=== PATIENT | male | born 1980 | race Caucasian/White ===

== ENCOUNTER 2025-03-05 23:25 | Inpatient (IN) | payer BC, SELFPAY ==
[2025-03-05 23:33] VITALS: BP 158/108; PULSE 113; RESP 16; TEMP 37; O2SAT 98; BMI 25.0
--- NOTE | 2025-03-05 23:51 | ECG_ITS ---
[facility] [employer] Test Date: 2025-03-05 Pat Name: Ascencion Win Department: Room: Gender: Male Information Coder: : 1980 Requested By: Demetria Suggs Order Number: [id number] Lopes MD: Jenniffer Guardado M.D. Measurements Intervals [place] Rate: 97 P: 0 AL: 0 QRS: 76 QRSD: 107 T: 36 QT: 341 QTc: 435 Interpretive Statements Sinus rhythm with PACs MODERATE INTRAVENTRICULAR CONDUCTION DELAY [105+ ms QRS DURATION, 80+ ms Q/S IN V1/V2, NO Q AND 60+ ms R IN I/aVL/V5/V6] NONSPECIFIC T-WAVE ABNORMALITY No previous ECG available for comparison Electronically Signed On 03-06-2025 09:00:02 CDT by Jenniffer Guardado M.D. [email or web address]
--- NOTE | 2025-03-05 23:54 | ED.C_ITS ---
HPI - Psych General: Chief Complaint: Psychiatric Symptoms Stated Complaint: low bs/stressed Time Seen by Provider: 03/05/25 23:34 History of Present Illness: Patient is 44-year-old male presents to ED by police department due to psychosis. Patient's called police department due to in manic behavior. Police department placed patient on 96-hour hold. Patient denies any alcohol intake, and participates in Alcoholics Anonymous program, no drug use other than marijuana. Patient is a poor historian, and for what ever reason believes that I am his , or he is in love with me. Related Data Allergies Allergy/AdvReac Type Severity Reaction Status Date / Time cephalexin (From Keflet) Allergy Severe ALGY-Wheezi Verified 03/06/25 01:54 ng Review of Systems General: Reports: 10 or more systems reviewed and unremarkable except in HPI and below Const: Denies: fever(s) or chills Psych: Reports: mood swings, panic attacks, loss of interest and other (unreliable historian) Physical Exam Const: COMMON NORMALS: patient oriented x3 GENERAL APPEARANCE: well kempt HENMT: COMMON NORMALS: normocephalic and atraumatic HEAD & SCALP: normocephalic and atraumatic Neck/C-Spine: COMMON NORMALS: full ROM Chest: COMMONS NORMALS: normal inspection of the chest Resp: COMMON NORMALS: normal respiratory effort and clear to auscultation bilaterally AUSCULTATION: clear to auscultation bilaterally Cardio: COMMON NORMALS: S1 normal heart sound present and S2 normal heart sound present HEART SOUNDS: S1 normal heart sound present and S2 normal heart sound present GI: COMMON NORMALS: Normal to inspection, nondistended, normoactive bowel sounds present and Soft to palpation PALPATION: Yes Soft to palpation : COMMON NORMALS: Yes no CVA tenderness BLADDER/KIDNEY EXAM: Yes no CVA tenderness Back/Pelvis: COMMON NORMALS: no CVA tenderness Extremity: COMMON NORMALS: normal to inspection and full ROM Neuro: COMMON NORMALS: patient oriented x3, CN's II-XII intact bilaterally and moves all extremities Psych: APPEARANCE: Yes well kempt ATTITUDE: Yes bizarre MOOD & AFFECT: Yes elevated mood and Yes euphoric THOUGHT PROCESS: Flight of ideas present, Tangential thought process present and racing thoughts MEMORY/COGNITION: Yes memory grossly impaired INSIGHT: Poor insight present (Psych) and questionable JUDGEMENT: Poor judgement present (Psych) Course Vital Signs: Vital signs: Vital Signs Temperature 98.6 F 03/05/25 23:33 Pulse Rate 113 H 03/05/25 23:33 Respiratory Rate 16 03/05/25 23:33 Blood Pressure 158/108 03/05/25 23:33 Pulse Oximetry 98 03/05/25 23:33 Oxygen Delivery Me thod Room Air 03/05/25 23:33 MDM - Psych Medical Decision Making He is oriented to the hospital, and following the plan, and appears cooperative other than continually wanting to touch me inappropriately. Security came to bedside. Reiterated I had never met this patient before. He does not appear to have capacity at this time. Security notes that patient thought he was his father. Ammonia level added on. Does not appear to be alcohol withdrawal since it has been sometime, witnessed by , that patient has not had alcohol consumption. Will continue to monitor. 96 hour hold by police dept. Nursing now informs me that Police Department did not place on 96-hour hold. Given the update, we will plan on 96-hour hold since patient is not aware, or can make appropriate decisions at this time lacking capacity. On reevaluation, patient notes that he is at [facility] not because he drinks, but because he utilizes marijuana. I am unsure of his story. I did add on ammonia. All of his labs are pending due to lack of staff. Will turn over to Dr. Honeycutt Lab Data Laboratory Results Urine Color Yellow (Yellow) 03/06/25 00:41 Urine Appearance Clear (CLEAR) 03/06/25 00:41 Urine pH 5.5 (5-7) 03/06/25 00:41 Ur Specific [place] 1.027 (1.005-1.030) 03/06/25 00:41 Urine Protein Negative (Negative) 03/06/25 00:41 Urine Glucose (UA) Trace (Normal) H 03/06/25 00:41 Urine Ketones Trace (Negative) 03/06/25 00:41 Urine Blood Negative (Negative) 03/06/25 00:41 Urine Nitrate Negative (Negative) 03/06/25 00:41 Urine Bilirubin Negative (Negative) 03/06/25 00:41 Urine Urobilinogen 1.0 mg/dL (Negative) 03/06/25 00:41 Ur Leukocyte Esterase Negative (Negative) 03/06/25 00:41 Urine RBC 0-2 /hpf (0-2) 03/06/25 00:41 Urine WBC 0-5 /hpf (0-5) 03/06/25 00:41 Ur Squamous Epith Cells 0-5 /hpf (0-5) 03/06/25 00:41 Amorphous Sediment Not Reportable 03/06/25 00:41 Urine Bacteria None seen /hpf (NONE) 03/06/25 00:41 Hyaline Casts 0-4 /lpf H 03/06/25 00:41 No radiology studies performed this visit EKG Data EKG 1: Interpretation: Sinus rhythm with PACs, normal axis, rate of 97, QTc 396 Discharge Plan Discharge Patient Disposition: Admitted As Inpatient Clinical Impression: Psychosis Qualifiers: Psychosis type: delusional disorder Qualified Code(s): F22 - Delusional disorders Condition: Stable Discharge Diet: Usual diet Coding Level of Care Code ED Supervisor Inventory Merchandising for Hase[employer] Petty
[2025-03-06] MEDS: OLANZapine 5 mg ODT PO (01:06)
[2025-03-06 01:07] LABS: Bilirubin Urine Negative (Negative); Blood Urine Negative (Negative); Glucose Urine UA Trace (Normal); Ketones Urine Trace (Negative); Leukocyte Esterase Urine Negative (Negative); Nitrate Urine Negative (Negative); Protein Urine Negative (Negative); Specific Gravity, Urine 1.027 (1.005-1.030); Urine Appearance Clear (CLEAR); Urine Color Yellow (Yellow); pH Urine 5.5 (5-7)
[2025-03-06 01:12] LABS: Add Urine Microscopic? YES; Bacteria Urine None Seen /hpf; Hyaline Casts Urine 0-4 /lpf; RBC Urine 0-2 /hpf (0-2); Squamous Epithelial Cell Urine 0-5 /hpf (0-5); WBC Urine 0-5 /hpf (0-5)
--- NOTE | 2025-03-06 02:07 | PC.NURSE ---
96 Hour Involuntary Hold Patient Rights have been reviewed with the patient and a copy of the same has been given to him. Security Officers Balwinder and Key were present at bedside at the time of presentation of Rights.
[2025-03-06 02:43] LABS: Basophils # 0.1 10^3/uL (0.0-0.1); Basophils % 0.8 %; Eosinophils # 0.1 10^3/uL (0.0-0.8); Eosinophils % 1.2 %; Hematocrit 43.2 % (37-53); Lymphocytes % 19.7 %; Mean Corpuscular HGB Conc 33.3 g/dL (30-55); Mean Corpuscular Hemoglobin 32.3 pg (27-33); Mean Corpuscular Volume 96.9 fl (82-101); Mean Platelet Volume 10.1 fL (7.4-10.4); Monocytes # 0.6 10^3/uL (0.2-0.9); Monocytes % 5.5 %; Neutrophils # 7.21 10^3/uL (1.8-7.7); Neutrophils % 72.5 %; Nucleated Red Blood Cells % 0 %; Platelet Count 183 10^3/cmm (157-399); Red Blood Count 4.46 10^6/uL (3.85-5.65); Red Cell Distribution Width 12.6 % (12.1-15.1); White Blood Count 9.95 10^3/uL (3.29-11.43)
[2025-03-06 03:02] LABS: Ammonia 25 umol/L (16-60)
[2025-03-06 03:11] LABS: Alanine Aminotransferase 17 U/L (0-41); Albumin Level 4.2 g/dL (3.5-5.2); Alkaline Phosphatase 76 U/L (40-130); Aspartate Amino Transferase 23 U/L (0-40); Blood Urea Nitrogen 15 mg/dL (6-20); Calcium 9.8 mg/dL (8.5-10.5); Carbon Dioxide 25 mmol/L (22-29); Chloride 104 mmol/L (98-107); Creatinine Clr Calc Pharmacy 134.9344; Glomerular Filtration Rate 105.5 mL/min (90-130); Glucose 178 mg/dL (65-115); Osmolality Calculated 293 mOsm/kg (285-295); Sodium 139 mmol/L (136-145); Thyroid Stimulating Hormone 2.34 uIU/mL (0.27-4.20); Total Bilirubin 0.2 mg/dL (0.15-1.2); Total Protein 7.2 g/dL (6.6-8.7)
[2025-03-06 03:15] LABS: Acetaminophen < 5.0 ug/mL (10-30); Alcohol Level < 10 mg/dL (0-10); Salicylate < 0.3 mg/dL (3-10)
[2025-03-06 04:42] VITALS: BP 147/96; BP 158/76; PULSE 69; PULSE 88; RESP 16; RESP 17; TEMP 36.4; O2SAT 100; O2SAT 98
[2025-03-06 06:00] VITALS: BP 147/96; PULSE 69; RESP 17; TEMP 36.4; O2SAT 100
[2025-03-06 07:20] LABS: Amphetamines Screen Urine Negative (Negative); Barbiturates Screen Urine Negative (Negative); Benzodiazepines Screen Urine Negative (Negative); Cocaine Screen Urine Negative (Negative); Opiate Screen Urine Negative (Negative); PCP Screen Urine Negative (Negative); THC Screen Urine Positive (Negative)
--- NOTE | 2025-03-06 13:20 | PC.NURSE ---
Patient at window states that this is just a game. Patient said that he needs access to the meeting. This nurse informed patient that the meeting has already passed, that the meeting is between the doctor, case workers and the charge nurse. Patient said, that's great, sounds unreasonable. Patient stomping his foot by the glass. Patient agitated, says I don't want to be that brandt. This nurse offered medication for agitation, patient said NO I don't need anything, I am fine, I get to choose!
[2025-03-06 14:00] VITALS: BP 139/91; RESP 18; TEMP 36.9; O2SAT 97
--- NOTE | 2025-03-06 14:26 | W.PM.NPUH&PS ---
Providers/Chief Complaint Admitting Physician: Benjamín Mello MD Chief Complaint: low bs/stressed HPI NPU History of Present Illness Ascencion Win is a 44 year old male who presented to the emergency department with the following report: Chief Complaint: Psychiatric Symptoms Stated Complaint: low bs/stressed Time Seen by Provider: 03/05/25 23:34 History of Present Illness: Patient is 44-year-old male presents to ED by police department due to psychosis. Patient's called police department due to in manic behavior. Police department placed patient on 96-hour hold. Patient denies any alcohol intake, and participates in Alcoholics Anonymous program, no drug use other than marijuana. Patient is a poor historian, and for what ever reason believes that I am his , or he is in love with me. He is unknown to [facility] psychiatry through inpatient or outpatient services. He was admitted to the neuropsychiatric unit for definitive treatment of those issues. He presented today reporting: Chief complaint Struggling with addiction and experiencing symptoms of valeria. History of the present complaint The patient reports experiencing frustration and a paradoxical position regarding his addiction. He acknowledges his identity as an addict and expresses a desire to be clean, stating that he does not want to be an addict anymore. He emphasizes the importance of the program he is participating in, which he believes is essential for his recovery. Despite his frustration, he is committed to attending the program regularly, as he feels it is beneficial for him. The patient describes his addiction as a significant part of his life, mentioning that he has struggled with it for a long time. He identifies as a pothead, with marijuana being his drug of choice. He has experienced legal issues related to his addiction, including a DUI and distribution charges. He has been to custodial multiple times, with the longest duration being 198 days. He has attended an AA program once but has not participated in inpatient rehab or other structured programs. The patient expresses feelings of failure and exhaustion, particularly in relation to his family. He mentions his children and the difficulty he faces in being away from them, indicating that this is the first time he has been from them. He feels that his children might be happier without him, which adds to his sense of failure. He has lost a significant amount of weight, approximately 65 pounds, which he attributes to his efforts to improve himself for his children. The patient discusses his daughter, who he believes is demonstrating autistic features. He feels a sense of responsibility for her condition, although he acknowledges that he must accept it as it is. He expresses a desire to be a better person and to do everything for his child, but he feels that his addiction has hindered his ability to do so. The patient has a history of broken bones from childhood and mentions an allergy to Keflex. He has not experienced valeria before and is unfamiliar with the symptoms, although he acknowledges that he is currently experiencing them. He has not taken medication for his condition previously and is hesitant about doing so, preferring to leave decisions to a higher power or a doctor. He has been twice and has six biological children from these relationships. He identifies as a heterosexual and has a Anglican belief system. 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 He currently lives in a home with his and two children, aged three and six, and they have a dog. Mental health history Struggled with addiction for much of life, primarily with cannabis. Attended one Alcoholics Anonymous program. Has never been in inpatient rehab. Experienced legal issues related to drug use, including DUI and distribution charges. Has never been in a psychiatric hospital before. Reports current symptoms consistent with valeria, but has never experienced valeria before. Expresses desire to be clean and frustration with addiction. Social history heterosexual male with six biological children from two marriages. Currently living with and two children, ages three and six, in a home they own. Has a dog. Ran own [employer] business for about 10 years. No service. Identifies as Anglican. Reports addiction issues, primarily with cannabis, and has a history of legal issues including DUI and drug-related charges. Has been to custodial approximately 10 times. No inpatient rehab experience, but has attended AA meetings. Allergic to Keflex. No current medication use. Meds NPU Home Medications ?Medication ?Instructions ?Recorded ?Confirmed ?Last Taken ?Type No Known Home Medications 03/06/25 03/06/25 Unknown History Allergies Allergy/AdvReac Type Severity Reaction Status Date / Time cephalexin (From Keflet) Allergy Severe ALGY-Wheezi Verified 03/06/25 01:54 ng Mental Status Exam MSE Comments: This is a well-nourished well-developed white male in hospital scrubs with limited grooming but intense eye contact. No abnormal movements except for psychomotor agitation. Somewhat cooperative with exam and moderate distress. Speech was increased rate and volume. Mood described as fine affect irritable. Thought process linear. Thought content: Patient denied suicidal or homicidal ideation, there were no delusions reported but clear paranoia and persecutory delusions noted, he denied any auditory or visual hallucinations but did believe he had special abilities of sort. Attention and concentration were limited and memory appeared somewhat unreliable but no more formally tested. He is alert and oriented to person and place. Insight, judgment and impulse control are all impaired. Vitals/I&O/Wt Last Vital Signs Temp 97.6 F 03/06/25 06:00 Pulse 69 03/06/25 06:00 Resp 17 03/06/25 06:00 BP 147/96 03/06/25 06:00 Pulse Ox 100 03/06/25 06:00 O2 Del Method Room Air 03/06/25 06:00 Weight last 48 hrs Weight 83.915 kg Data NPU 03/06/25 02:32 03/06/25 02:32 A&P Assessment and plan (1) Psychosis: (2) Cannabis use disorder in remission: Plan This is a 44-year-old white male with a significant history of addiction issues and psychiatric morbidity but absent clarity as to how significant his mental health issues have been. He presented to the hospital under the influence and appearing quite manic but he endorses although he is manic that this was the first time that he has experienced valeria. But he knew that it was in fact valeria which raises the question of whether or not this is the first time. UDS only positive for marijuana. 1. Encourage initiation of antipsychotic. We discussed restarting Invega. 2. Continue every 15 minute checks for safety. 3. Encourage individual, group and milieu therapy. 4. Encouraged sober living treatments after discharge at the highest level of care to which he is willing to commit. 5. Get collateral information. 6. Evaluate against the backdrop of a 96-hour hold. PDMP PDMP Reviewed: Not Reviewed Involuntary Hold Information Hold Status: Legal Status: 96 Hour Hold Date/Time Hold Expires: 03/12/25@0138 Attestations NPU Medical Necessity Statement*: Inpatient hospitalization is medically necessary and the clinically appropriate intervention at this time. We will monitor medications and make changes and adjustments as indicated. He will be in the hospital for over 2 midnights. Likely length of stay 7-10 days. Coding Level of Care Code Acute Code for [facility] Fwd Diagnoses Psychosis F22 Psychosis type: delusional disorder Cannabis use disorder in remission F12.91
[2025-03-06] MEDS: paliperidone ER 3 mg Tablet PO (20:04)
[2025-03-06] MEDS: hyDROXYzine 25 mg Capsule 50 MG PO (20:04)
[2025-03-06] MEDS: trazodone 50 mg Tablet PO (20:05)
[2025-03-06] MEDS: nicotine 4 mg lozenge MUCOUS MEM (21:00)
[2025-03-06 21:53] VITALS: BP 135/89; PULSE 76; RESP 18; TEMP 36.9; O2SAT 98
--- NOTE | 2025-03-07 00:10 | PC.NURSE ---
Pt. up at nurses station wanting to leave, asking to call his to come and pick him up. Signee let pt. know he would not be DC tonight. Pt. then wanted to go into the courtyard to smoke a cigarette. Signee let pt. know this was a non smoking facility. Pt. said so what your telling me is for the next 10 hrs or so i have no control over my life. Pt. stated he gets it, he has mental clarity, and that he can now finish the finial steps. Pt. irritated, not making a lot of since in what he was saying, but signee believes pt. was being sarcastic with remarks.
--- NOTE | 2025-03-07 00:19 | PC.NURSE ---
Pt. came up to nurses station and said he I understand, I get it. Your my mom and I love you. Signee informed pt. signee was not his mom, then pt. said no your my sister . Pt. asked for a razor to shave not making any since about it being something symbolic. Again asking for a cigarette. Pt. walked back to his room not making any since with what he was saying. Pt. did blow signee a kiss.
--- NOTE | 2025-03-07 01:18 | PC.NURSE ---
Pt. came up to the nurses station thanking signee repeatedly saying he gets it, clarity. He read the first 3 chapters of the bible. He bowed to signee and said thank you for making me see, and said he had given his testimony to someone else and was there anything else he needed to do before morning.
--- NOTE | 2025-03-07 02:01 | PC.NURSE ---
Pt. came out of his room and started rolling all the way down the kim from the dayroom then back again. While rolling down the kim pt. was talking to God saying he has saw the error of his ways and he was doing this to humiliate himself. Another male pt. was in the dayroom and had conflict with pt. earlier in the day. The other male pt. laid a blanket down in the doorway to the dayroom and when pt. rolled back into the dayroom pt. graveled at other male pt.'s feet. Pt. kissed the floor and said a prayer. Security came down and walked with pt. back to pt.'s room. Pt. bowed to security.
[2025-03-07 06:00] VITALS: BP 157/88; PULSE 110; RESP 18; O2SAT 98
[2025-03-07] MEDS: paliperidone ER 3 mg Tablet PO (08:39)
[2025-03-07] MEDS: LORazepam 2 mg Tablet PO (08:39)
--- NOTE | 2025-03-07 08:46 | PC.NURSE ---
patient frequently at window, trying to hear what staff are taking about. Patient said that he needs to talk to the doctor because he has shit and pissed himself today. Patient is having bizarre behavior, frequently bowing to staff. Patient is making fellow patients feel uncomfortable. This nurse talked with Dr. Mello about patient behavior. Dr. Mello told this nurse to administer 2mg ativan PO to patient. Patient took ativan and invega this morning. When this nurse asked patient his name and , patient refused to give an answer, saying it doesn't matter. Patient did agree that his is named Yakelin. When this nurse handed patient the medicine cup containing the medication, patient appeared suddenly agitated. He purses his lips and pounded his fist on the ledge a couple of times while breathing heavily.
--- NOTE | 2025-03-07 10:17 | PC.NURSE ---
EVS reported that a patient had a bm in the shower. This patient had just went to the bathroom prior to this. Patient has had one incontinent episode this morning. He requires frequent redirection by staff.
[2025-03-07 14:00] VITALS: BP 150/89; PULSE 154; RESP 18; O2SAT 97
[2025-03-07] MEDS: nicotine 4 mg lozenge MUCOUS MEM (20:11)
[2025-03-07] MEDS: trazodone 50 mg Tablet PO (20:56)
[2025-03-07] MEDS: hyDROXYzine 25 mg Capsule 50 MG PO (20:56)
[2025-03-07 21:18] VITALS: BP 141/96; PULSE 95; RESP 17; TEMP 36.4; O2SAT 99; BMI 24.3
--- NOTE | 2025-03-07 22:01 | W.PM.NPUPNS ---
Subjective NPU Subjective: Patient presented today continuing in the same vein of paranoia, persecutory and grandiose delusions per staff reports and direct observation. We continue to encourage him to take the Invega and that would be his fastest means to discharge with the demonstration of improvement. He denied any side effects to the medication. Mental Status Exam MSE Comments: This is a well-nourished well-developed white male in hospital scrubs with limited grooming but intense eye contact. No abnormal movements except for psychomotor agitation. Somewhat cooperative with exam and moderate distress. Speech was increased rate and volume. Mood described as fine affect irritable. Thought process linear. Thought content: Patient denied suicidal or homicidal ideation, there were no delusions reported but clear paranoia and persecutory delusions noted, he denied any auditory or visual hallucinations but did believe he had special abilities of sort. Attention and concentration were limited and memory appeared somewhat unreliable but no more formally tested. He is alert and oriented to person and place. Insight, judgment and impulse control are all impaired. Vitals/I&O/Wt Last Vital Signs Temp 97.5 F L 03/07/25 21:18 Pulse 95 03/07/25 21:18 Resp 17 03/07/25 21:18 BP 141/96 03/07/25 21:18 Pulse Ox 99 03/07/25 21:18 O2 Del Method Room Air 03/07/25 21:18 Weight last 48 hrs Weight 81.363 kg Weight 83.915 kg Data NPU 03/06/25 02:32 03/06/25 02:32 A&P Assessment and plan (1) Psychosis: (2) Cannabis use disorder in remission: Plan This is a 44-year-old white male with a significant history of addiction issues and psychiatric morbidity but absent clarity as to how significant his mental health issues have been. He presented to the hospital under the influence and appearing quite manic but he endorses although he is manic that this was the first time that he has experienced valeria. But he knew that it was in fact valeria which raises the question of whether or not this is the first time. UDS only positive for marijuana. 1. Started Invega 3 mg p.o. daily we will increase to 6 mg tomorrow. 2. Continue every 15 minute checks for safety. 3. Encourage individual, group and milieu therapy. 4. Encouraged sober living treatments after discharge at the highest level of care to which he is willing to commit. 5. Get collateral information. 6. Evaluate against the backdrop of a 96-hour hold. PDMP PDMP Reviewed: Not Reviewed Involuntary Hold Information Hold Status: Legal Status: 96 Hour Hold Date/Time Hold Expires: 03/12/25@0138 Attestations NPU Medical Necessity Statement*: Inpatient hospitalization is medically necessary and the clinically appropriate intervention at this time. We will monitor medications and make changes and adjustments as indicated. Likely length of stay 7-10 days. Coding Level of Care Code Acute Code for [facility] Fwd Diagnoses Psychosis F22 Psychosis type: delusional disorder Cannabis use disorder in remission F12.91
--- NOTE | 2025-03-07 23:52 | PC.NURSE ---
Pt. came up to nurses station not making any since. Pt. did say he could not figure out why all the staff had brand new tattoos, and that was one reason he knew this was not real.
[2025-03-08] MEDS: haloperidol inj 5 mg/mL INJ 1 mL IM (04:12)
[2025-03-08] MEDS: diphenhydrAMINE 50 mg/mL SDV 1mL IM (04:12)
[2025-03-08] MEDS: LORazepam 2 mg/mL INJ 1 mL IM (04:12)
--- NOTE | 2025-03-08 04:13 | PC.NURSE ---
Signee heard yelling from the dayroom. Went to the dayroom and pt. in room 155-1 was yelling d/t pt. in 170 had asked for a milk from him. Pt. in room 155 said no you need to get your own milk, but pt. in room 170 said no I want your milk and went to grab it. Pt. from room 155 said Your sanchez i didn't knock the hell out of him . Signee redirected pt. out of the dayroom, pt. was not violent, but was being difficult and not following directions when asked to get away from pt. in room 150. Finally staff got pt. to his room, but pt. did not want to stay in his room wanted to go back into the dayroom. Signee pulled a zyprexa from [employer], but pt. refused to take it. Security was called to come down d/t pt. being difficult and not following directions. Signee then pulled B-52 from [employer], pt. did not want the injections, he wanted to take part in a meeting. Signee let pt. know this was the meeting and pt. decided then to sit down and let this nurse and another nurse give him the injections. Security was present in the room when injections was given as was house builder.
--- NOTE | 2025-03-08 04:47 | PC.NURSE ---
zyprexa was wasted with this signee and Leann Kaba LPN
--- NOTE | 2025-03-08 06:32 | PC.NURSE ---
vs not completed per charge nurse resp 16
[2025-03-08] MEDS: paliperidone ER 3 mg Tablet PO ×2 (08:20→08:42)
[2025-03-08] MEDS: nicotine 4 mg lozenge MUCOUS MEM (08:20)
--- NOTE | 2025-03-08 08:26 | W.PM.NPUPNS ---
Subjective NPU Subjective: Patient presented today reporting that things were going better. She continued however to be quite manic and have some weird thoughts about the program that he is in here at the hospital. He talks about being able to go home and sort things out and coming back. We discussed that when people present in psychosis that we like to treat them until they are at a place that is safe and they are thinking clearly. We discussed wanting to speak with his significant other to get a sense of how she thinks he is doing compared to baseline. He denied any side effects to the medication. Mental Status Exam MSE Comments: This is a well-nourished well-developed white male in hospital scrubs with limited grooming but intense eye contact. No abnormal movements except for psychomotor agitation. Somewhat cooperative with exam and moderate distress. Speech was increased rate and volume. Mood described as fine affect irritable. Thought process linear. Thought content: Patient denied suicidal or homicidal ideation, there were no delusions reported but clear paranoia and persecutory delusions noted, he denied any auditory or visual hallucinations but did believe he had special abilities of sort. Attention and concentration were limited and memory appeared somewhat unreliable but no more formally tested. He is alert and oriented to person and place. Insight, judgment and impulse control are all impaired. Vitals/I&O/Wt Last Vital Signs Temp 97.5 F L 03/07/25 21:18 Pulse 95 03/07/25 21:18 Resp 17 03/07/25 21:18 BP 141/96 03/07/25 21:18 Pulse Ox 99 03/07/25 21:18 O2 Del Method Room Air 03/07/25 21:18 Weight last 48 hrs Weight 81.363 kg Data NPU 03/06/25 02:32 03/06/25 02:32 A&P Assessment and plan (1) Psychosis: (2) Cannabis use disorder in remission: Plan This is a 44-year-old white male with a significant history of addiction issues and psychiatric morbidity but absent clarity as to how significant his mental health issues have been. He presented to the hospital under the influence and appearing quite manic but he endorses although he is manic that this was the first time that he has experienced valeria. But he knew that it was in fact valeria which raises the question of whether or not this is the first time. UDS only positive for marijuana. 1. Started Invega 3 mg p.o. daily we will increase to 6 mg tomorrow. 2. Continue every 15 minute checks for safety. 3. Encourage individual, group and milieu therapy. 4. Encouraged sober living treatments after discharge at the highest level of care to which he is willing to commit. 5. Get collateral information. 6. Evaluate against the backdrop of a 96-hour hold. PDMP PDMP Reviewed: Not Reviewed Involuntary Hold Information Hold Status: Legal Status: 96 Hour Hold Date/Time Hold Expires: 03/12/25@0138 Attestations NPU Medical Necessity Statement*: Inpatient hospitalization is medically necessary and the clinically appropriate intervention at this time. We will monitor medications and make changes and adjustments as indicated. Likely length of stay 4 to 6 days. Coding Level of Care Code Acute Code for g Fwd Diagnoses Psychosis F22 Psychosis type: delusional disorder Cannabis use disorder in remission F12.91
[2025-03-08 09:28] VITALS: BP 124/79; PULSE 89; RESP 17; TEMP 37; O2SAT 98
[2025-03-08 14:00] VITALS: BP 134/83; PULSE 90; RESP 17; O2SAT 98
[2025-03-08] MEDS: hyDROXYzine 25 mg Capsule 50 MG PO (20:15)
[2025-03-08] MEDS: haloperidol 5 mg Tablet PO (20:15)
[2025-03-08] MEDS: trazodone 50 mg Tablet PO (20:15)
[2025-03-08 20:39] VITALS: BP 138/101; PULSE 101; RESP 18; TEMP 36.3; O2SAT 100
[2025-03-09 06:00] VITALS: BP 124/79; PULSE 108; RESP 18; TEMP 36.7; O2SAT 97
[2025-03-09] MEDS: paliperidone ER 6 mg Tablet PO (08:39)
--- NOTE | 2025-03-09 09:21 | PC.NURSE ---
Pt states that he slept good last night. 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 He rates his anxiety a 2/10 and states that is related to just wanting to leave. He rates his depression a 0/10. He denies any hallucinations. He denies SI/HI. No pain is reported. He states that his plan at d/c is to leave with his In laws, , and kids and they are going to be moving back to [place]. He states that they have a better support system up there and they think that will be best for them.
--- NOTE | 2025-03-09 12:37 | PC.NURSE ---
Spoke with Yakelin Audelia, pt . She states that pt has no hx of any type of behavior like this. She states that he was on probation from [id number] and had to do AA during that time for 4 years. She states that they had times that they thought maybe he was bipolar because he would have episodes of highs and lows She states that he also hyperfixates on a topic and will spend a lot of time on it. She states this is a lot like their daughter does and she is autistic. She is not remembering anything that has changed recently, but she states that hind sight this started roughly a week ago.
[2025-03-09 14:00] VITALS: BP 139/89; PULSE 105; RESP 17; O2SAT 98
--- NOTE | 2025-03-09 18:05 | P.NPUPN_ITS ---
Subjective NPU 2 Subjective: Patient presented today reporting that things are going much better. He reports that the experiences that he was having before have diminished or gone away. We discussed that as much that he feels he just got better that the combination of the treatment milieu, him taking the antipsychotic, and him abstaining from any drug use in the past few days all have come together to produce his improvement. He was really hoping to be discharged as soon as possible and denied any side effects to the medication. Mental Status Exam 2 MSE Comments: This is a well-nourished well-developed white male in hospital scrubs with limited grooming but intense eye contact. No abnormal movements except for psychomotor agitation. Somewhat cooperative with exam and mild to moderate distress. Speech was more normal rate and volume. Mood described as much better, affect less irritable. Thought process linear. Thought content: Patient denied suicidal or homicidal ideation, there were no delusions reported and clear decrease in paranoia and persecutory delusions noted, he denied any auditory or visual hallucinations. Attention and concentration were limited and memory appeared somewhat unreliable but no more formally tested. He is alert and oriented to person and place. Insight, judgment and impulse control are all impaired. Vitals/I&O/Wt Last Vital Signs Temp 98.1 F 03/09/25 06:00 Pulse 110 H 03/09/25 20:12 Resp 18 03/09/25 20:12 BP 120/85 03/09/25 20:12 Pulse Ox 97 03/09/25 20:12 O2 Del Method Room Air 03/09/25 20:12 Data NPU 03/06/25 02:32 03/06/25 02:32 A&P Assessment and plan (1) Psychosis: (2) Cannabis use disorder in remission: Plan This is a 44-year-old white male with a significant history of addiction issues and psychiatric morbidity but absent clarity as to how significant his mental health issues have been. He presented to the hospital under the influence and appearing quite manic but he endorses although he is manic that this was the first time that he has experienced valeria. But he knew that it was in fact valeria which raises the question of whether or not this is the first time. UDS only positive for marijuana. 1. Started Invega 3 mg p.o. daily we will increase to 6 mg tomorrow. 2. Continue every 15 minute checks for safety. 3. Encourage individual, group and milieu therapy. 4. Encouraged sober living treatments after discharge at the highest level of care to which he is willing to commit. 5. Get collateral information. 6. Evaluate against the backdrop of a 96-hour hold. PDMP PDMP Reviewed: Not Reviewed Involuntary Hold Information 2 Hold Status: Legal Status: 96 Hour Hold Date/Time Hold Expires: @0138 Attestations NPU 2 Medical Necessity Statement*: Inpatient hospitalization is medically necessary and the clinically appropriate intervention at this time. We will monitor medications and make changes and adjustments as indicated. Likely length of stay 1-3 days. Coding Level of Care Code Acute Code for [facility] Fwd Diagnoses Psychosis F22 Psychosis type: delusional disorder Cannabis use disorder in remission F12.91
[2025-03-09 20:12] VITALS: BP 120/85; PULSE 110; RESP 18; O2SAT 97
[2025-03-10 06:00] VITALS: BP 134/77; PULSE 84; RESP 18; TEMP 36.2; O2SAT 100
[2025-03-10] MEDS: paliperidone ER 6 mg Tablet PO (08:36)
--- NOTE | 2025-03-10 13:06 | PC.NURSE ---
Patient assessment complete at 0810. Patient continues to be intrusive at times with staff. He is directable. He denies SI/HI/AVH. He denies intrusive thoughts. He states that I need to prove to my that I love her and I'm going to change. I'm an addict and don't pay attention to my children. I've gave them diseases and let yards go. I paid more attention to the chickens. Discharge plans discussed. Patient plans to talk with counselor after discharge to show I'm not an addict. His plan is to move to [place]. Discussed with interdisciplinary staff and physician at care rounds.
[2025-03-10 14:00] VITALS: BP 141/91; PULSE 121; RESP 17; O2SAT 99
--- NOTE | 2025-03-10 17:50 | P.NPUPN_ITS ---
Subjective NPU 2 Subjective: Patient presented today reporting that he is doing okay. He reports appreciating the efforts of this treatment team and a willingness to stay until we think things are well. We discussed the fact that we had concerns about him leaving his kids unattended secondary to his manic state and that we are looking at making sure child protective services do not feel there are any additional needs. He suggested that his in-laws have come up to assist for this very reason and that he will not be in primary caregiver mode until things are much better. He denied any side effects of medication. Mental Status Exam 2 MSE Comments: This is a well-nourished well-developed white male in hospital scrubs with limited grooming but intense eye contact. No abnormal movements except for psychomotor agitation. Somewhat cooperative with exam and mild to moderate distress. Speech was more normal rate and volume. Mood described as much better, affect less irritable. Thought process linear. Thought content: Patient denied suicidal or homicidal ideation, there were no delusions reported and clear decrease in paranoia and persecutory delusions noted, he denied any auditory or visual hallucinations. Attention and concentration were limited and memory appeared somewhat unreliable but no more formally tested. He is alert and oriented to person and place. Insight, judgment and impulse control are all impaired. Vitals/I&O/Wt Last Vital Signs Temp 98.0 F 03/10/25 22:00 Pulse 118 H 03/10/25 22:00 Resp 20 H 03/10/25 22:00 BP 126/89 03/10/25 22:00 Pulse Ox 99 03/10/25 22:00 O2 Del Method Room Air 03/10/25 06:00 Data NPU 03/06/25 02:32 03/06/25 02:32 A&P Assessment and plan (1) Psychosis: (2) Cannabis use disorder in remission: Plan This is a 44-year-old white male with a significant history of addiction issues and psychiatric morbidity but absent clarity as to how significant his mental health issues have been. He presented to the hospital under the influence and appearing quite manic but he endorses although he is manic that this was the first time that he has experienced valeria. But he knew that it was in fact valeria which raises the question of whether or not this is the first time. UDS only positive for marijuana. 1. Started Invega 3 mg p.o. daily then increased to 6 mg. 2. Continue every 15 minute checks for safety. 3. Encourage individual, group and milieu therapy. 4. Encouraged sober living treatments after discharge at the highest level of care to which he is willing to commit. 5. Get collateral information. Is led to some understanding of him possibly putting his children at risk and need for child line. 6. Evaluate against the backdrop of a 96-hour hold. PDMP PDMP Reviewed: Not Reviewed Involuntary Hold Information 2 Hold Status: Legal Status: 96 Hour Hold Date/Time Hold Expires: @0138 Attestations NPU 2 Medical Necessity Statement*: Inpatient hospitalization is medically necessary and the clinically appropriate intervention at this time. We will monitor medications and make changes and adjustments as indicated. Likely length of stay 1-3 days. Coding Level of Care Code Acute Code for [facility] Fwd Diagnoses Psychosis F22 Psychosis type: delusional disorder Cannabis use disorder in remission F12.91
[2025-03-10 22:00] VITALS: BP 126/89; PULSE 118; RESP 20; TEMP 36.7; O2SAT 99
[2025-03-11 06:00] VITALS: BP 130/82; PULSE 80; RESP 18; TEMP 36.5; O2SAT 99
[2025-03-11] MEDS: paliperidone ER 6 mg Tablet PO (09:13)
[2025-03-11 14:00] VITALS: BP 137/82; PULSE 86; RESP 17; O2SAT 99
--- NOTE | 2025-03-11 18:16 | P.NPUPN_ITS ---
Subjective NPU 2 Subjective: Patient presented today reporting that he is doing okay. He continued to identify that his need to be well was paramount. He continued to identify that his family needs him to make sure that he is on his medication. We discussed the risks, benefits and alternatives of initiating Invega Sustenna instead of him taking the pill and having to make that decision to be adherent each day and he understood and agreed to proceed as is documented in this note. He denied any side effects of the medication. Mental Status Exam 2 MSE Comments: This is a well-nourished well-developed white male in hospital scrubs with limited grooming but intense eye contact. No abnormal movements except for mild psychomotor retardation. Somewhat cooperative with exam in no acute distress. Speech was more normal rate and volume. Mood described as much better, affect more calm. Thought process linear. Thought content: Patient denied suicidal or homicidal ideation, there were no delusions reported and significant decrease in paranoia and persecutory delusions with no delusion out of the really noted, he denied any auditory or visual hallucinations. Attention and concentration were intact and memory appeared more reliable but no more formally tested. He is alert and oriented x 3. Insight, judgment and impulse control are all improving. Vitals/I&O/Wt Last Vital Signs Temp 97.6 F 03/11/25 21:07 Pulse 100 03/11/25 21:07 Resp 19 H 03/11/25 21:07 BP 138/86 03/11/25 21:07 Pulse Ox 99 03/11/25 21:07 O2 Del Method Room Air 03/11/25 21:07 Data NPU 03/06/25 02:32 03/06/25 02:32 A&P Assessment and plan (1) Psychosis: (2) Cannabis use disorder in remission: Plan This is a 44-year-old white male with a significant history of addiction issues and psychiatric morbidity but absent clarity as to how significant his mental health issues have been. He presented to the hospital under the influence and appearing quite manic but he endorses although he is manic that this was the first time that he has experienced valeria. But he knew that it was in fact valeria which raises the question of whether or not this is the first time. UDS only positive for marijuana. 1. Started Invega 3 mg p.o. daily then increased to 6 mg. Initiate Invega 234 mg IM to deltoid for loading dose. Second loading dose in 4 to 7 days. Depending on situation could consider discharge prior with continued improvement. 2. Continue every 15 minute checks for safety. 3. Encourage individual, group and milieu therapy. 4. Encouraged sober living treatments after discharge at the highest level of care to which he is willing to commit. 5. Get collateral information. Review of situation with is led to decision a child line is unnecessary and in-laws are in town and he will not be in a primary care role until it is determined that he is well again. 6. Evaluate against the backdrop of a 96-hour hold. PDMP PDMP Reviewed: Not Reviewed Involuntary Hold Information 2 Hold Status: Legal Status: 96 Hour Hold Date/Time Hold Expires: @0138 Attestations NPU 2 Medical Necessity Statement*: Inpatient hospitalization is medically necessary and the clinically appropriate intervention at this time. We will monitor medications and make changes and adjustments as indicated. Likely length of stay 1-3 days. Coding Level of Care Code Acute Code for [facility] Fwd Diagnoses Psychosis F22 Psychosis type: delusional disorder Cannabis use disorder in remission F12.91
[2025-03-11] MEDS: nicotine 4 mg lozenge MUCOUS MEM (19:13)
[2025-03-11 21:07] VITALS: BP 138/86; PULSE 100; RESP 19; TEMP 36.4; O2SAT 99
[2025-03-12 06:00] VITALS: BP 131/88; PULSE 108; RESP 18; TEMP 36.4; O2SAT 100
[2025-03-12] MEDS: paliperidone ER 6 mg Tablet PO (07:36)
[2025-03-12] MEDS: hyDROXYzine 25 mg Capsule 50 MG PO (07:36)
[2025-03-12] MEDS: paliperidone palmitate 234 mg Syringe IM (07:41)
[2025-03-12] MEDS: nicotine 4 mg lozenge MUCOUS MEM ×2 (08:31→12:24)
--- NOTE | 2025-03-12 14:11 | W.PM.NPUDCS ---
Diagnoses at Discharge Discharge Diagnosis (1) Psychosis: Status: Acute Qualifiers: Psychosis type: delusional disorder Qualified Code(s): F22 - Delusional disorders (2) Cannabis use disorder in remission: Status: Acute Reason for Visit Reason for Visit: low bs/stressed Involuntary Hold Information Hold Status: Legal Status: 96 Hour Hold Date/Time Hold Expires: 03/12/25@0138 Discharge Data Studies Completed and Pending: Laboratory Results WBC 9.95 10^3/uL (3.2 9-11.43) 03/06/25 02:32 RBC 4.46 10^6/uL (3.8 5-5.65) 03/06/25 02:32 Hgb 14.40 g/dL (11.27 -16.99) 03/06/25 02:32 Hct 43.2 % (37-53) 03/06/25 02:32 MCV 96.9 fl (82-101) 03/06/25 02:32 MCH 32.3 pg (27-33) 03/06/25 02:32 MCHC 33.3 g/dL (30-55) 03/06/25 02:32 RDW 12.6 % (12.1-15.1 ) 03/06/25 02:32 Plt Count 183 10^3/cmm (157 -399) 03/06/25 02:32 MPV 10.1 fL (7.4-10.4 ) 03/06/25 02:32 Neut % (Auto) 72.5 % 03/06/25 02:32 Lymph % (Auto) 19.7 % 03/06/25 02:32 Hickman % (Auto) 5.5 % 03/06/25 02:32 Eos % (Auto) 1.2 % 03/06/25 02:32 Baso % (Auto) 0.8 % 03/06/25 02:32 Neut # (Auto) 7.21 10^3/uL (1.8 -7.7) 03/06/25 02:32 Lymph # (Auto) 2.0 10^3/uL (0.8- 4.8) 03/06/25 02:32 Hickman # (Auto) 0.6 10^3/uL (0.2- 0.9) 03/06/25 02:32 Eos # (Auto) 0.1 10^3/uL (0.0- 0.8) 03/06/25 02:32 Baso # (Auto) 0.1 10^3/uL (0.0- 0.1) 03/06/25 02:32 Nucleated RBC % (a uto) 0 % 03/06/25 02:32 Nucleated RBCs # 0.0 /100WBC 03/06/25 02:32 Sodium 139 mmol/L (136-1 45) 03/06/25 02:32 Potassium 4.0 mmol/L (3.5-5 .1) 03/06/25 02:32 Chloride 104 mmol/L (98-10 7) 03/06/25 02:32 Carbon Dioxide 25 mmol/L (22-29) 03/06/25 02:32 Anion Gap 14.0 (5-19) 03/06/25 02:32 BUN 15 mg/dL (6-20) 03/06/25 02:32 Creatinine 0.8 mg/dL (0.7-1. 2) 03/06/25 02:32 GFR Calculation 105.5 mL/min (90- 130) 03/06/25 02:32 Glucose 178 mg/dL (65-115 ) H 03/06/25 02:32 Calculated Osmolal ity 293 mOsm/kg (285- 295) 03/06/25 02:32 Calcium 9.8 mg/dL (8.5-10 .5) 03/06/25 02:32 Total Bilirubin 0.2 mg/dL (0.15-1 .2) 03/06/25 02:32 AST 23 U/L (0-40) 03/06/25 02:32 ALT 17 U/L (0-41) 03/06/25 02:32 Alkaline Phosphata se 76 U/L (40-130) 03/06/25 02:32 Ammonia 25 umol/L (16-60) 03/06/25 02:32 Total Protein 7.2 g/dL (6.6-8.7 ) 03/06/25 02:32 Albumin 4.2 g/dL (3.5-5.2 ) 03/06/25 02:32 Globulin 3.0 g/dL (1.3-4.6 ) 03/06/25 02:32 TSH 2.34 uIU/mL (0.27 -4.20) 03/06/25 02:32 Urine Color Yellow (Yellow) 03/06/25 00:41 Urine Appearance Clear (CLEAR) 03/06/25 00:41 Urine pH 5.5 (5-7) 03/06/25 00:41 Ur Specific Gravit y 1.027 (1.005-1.0 30) 03/06/25 00:41 Urine Protein Negative (Negati ve) 03/06/25 00:41 Urine Glucose (UA) Trace (Normal) H 03/06/25 00:41 Urine Ketones Trace (Negative) 03/06/25 00:41 Urine Blood Negative (Negati ve) 03/06/25 00:41 Urine Nitrate Negative (Negati ve) 03/06/25 00:41 Urine Bilirubin Negative (Negati ve) 03/06/25 00: Urine Urobilinogen 1.0 mg/dL (Negati ve) 03/06/25 00:41 Ur Leukocyte Candie ase Negative (Negati ve) 03/06/25 00:41 Urine RBC 0-2 /hpf (0-2) 03/06/25 00:41 Urine WBC 0-5 /hpf (0-5) 03/06/25 00:41 Ur Squamous Epith Cells 0-5 /hpf (0-5) 03/06/25 00:41 Amorphous Sediment Not Reportable 03/06/25 00: Urine Bacteria None seen /hpf (N ONE) 03/06/25 00:41 Hyaline Casts 0-4 /lpf H 03/06/25 00:41 Salicylates < 0.3 mg/dL (3-10 ) L 03/06/25 02:32 Urine Opiates Scre en Negative ng/mL (N egative) 03/06/25 00:41 Acetaminophen < 5.0 ug/mL (10-3 0) L 03/06/25 02:32 Ur Barbiturates Sc reen Negative ng/mL (N egative) 03/06/25 00:41 Ur Phencyclidine S crn Negative ng/mL (N egative) 03/06/25 00:41 Ur Amphetamines Sc reen Negative ng/mL (N egative) 03/06/25 00:41 U Benzodiazepines Scrn Negative ng/mL (N egative) 03/06/25 00:41 Urine Cocaine Scre en Negative ng/mL (N egative) 03/06/25 00:41 U Marijuana (THC) Screen Positive ng/mL (N egative) H 03/06/25 00:41 Ethyl Alcohol < 10 mg/dL (0-10) 03/06/25 02:32 Vitals: Last Vital Signs Temp 97.6 F 03/12/25 06:00 Pulse 108 H 03/12/25 06:00 Resp 18 03/12/25 06:00 BP 131/88 03/12/25 06:00 Pulse Ox 100 03/12/25 06:00 O2 Del Method Room Air 03/12/25 06:00 Discharge Plan Discharge Patient Disposition: Home Condition: Stable Prescriptions: New hydroxyzine pamoate 25 mg Capsule 50 mg PO Q6H PRN (Reason: Anxiety) 30 Days Qty: 30 1RF paliperidone 6 mg Tablet Extended Release 24hr 6 mg PO DAILY 10 Days Qty: 10 0RF Rx Instructions: Discontinue when medications run out. Will get next injection in 4 to 7 days Invega Sustenna 156 mg/mL syringe 156 mg IM Q30D 30 Days Qty: 1 2RF Rx Instructions: Next injection between 03/15 and 03/18/2025 deltoid loading dose. Then 04/16/2025 then as directed Discharge Orders: Discharge Order (Routine); Ordered 03/12/25 Ordered By: Benjamín Mello Referrals: [facility] [Outside, Counselor - Professional] - 03/23/25 9:00 am Referral Note: Assessment for services with [facility] Zimmer Discharge Diet: Regular Discharge Activity: Resume usual activity Patient Instructions: Opioid Safety Discharge Attestations NPU Time Spent in Discharge Care*: less than 30 min Specific Discharge Activities: Specific discharge activities: educating patient, discussing with porter sample case/social workers/dc planners, documenting/other paperwork and evaluating patient/reviewing data Coding Level of Care Code Acute Code for [facility] Fwd Diagnoses Psychosis F22 Psychosis type: delusional disorder Cannabis use disorder in remission F12.91
[2025-03-12 14:47] VITALS: BP 131/88; PULSE 108; RESP 18; TEMP 36.4; O2SAT 100
== END 2025-03-12 15:04 | disposition home or self-care (01) | DRG 885 ==
LOC: ER 03-06 04:30 → NP 03-06 04:40
PROVIDERS: Physician Assistant; Admitting Provider Psychiatry & Neurology Psychiatry; Emergency Provider Emergency Medicine; Visit Provider Psychiatry & Neurology Psychiatry
DX: F22 Delusional disorders (principal); F12.91 Cannabis use, unspecified, in remission
CPT/HCPCS: 36415; 80053; 80306; 80307; 81001; 82140; 84443; 85025; 93005; 96372; 97150; 97165; 99285; J1200; J1630; J2060; J9999